=== PATIENT | female | born 1965 | race Caucasian/White ===

== ENCOUNTER 2022-06-05 14:48 | Day surgery (SDC) | payer OTHER ==
[~2022-06-05] VITALS: Ht 167.6 cm; Wt 72.0 kg
[~2022-06-05 14:48] MED LIST: MOTRIN 200200 MG/TAB PO; NORCO 325 MG-51 TAB PO
[2022-06-05] MEDS ORDERED: PRILOSEC10 MG PO (15:37)
[2022-06-05] MEDS ORDERED: TORADOL 10MG TA10 MG PO (15:39)
[2022-06-05] MEDS ORDERED: BACTRIM DS 8001 TAB PO (15:41)
[2022-06-05] MEDS ORDERED: COMPAZINE 110 MG/TAB PO (15:41)
[2022-06-05] MEDS ORDERED: IMODIUM A-D2 MG PO (15:43)
[2022-06-05] MEDS ORDERED: CLARITIN 1010 MG/TAB PO (15:43)
[2022-06-05 16:17] VITALS: BP 131/66; PULSE 104; TEMP 97.6
[2022-06-05] MEDS ORDERED: PYRIDIUM 100MG100 MG PO (16:54)
[2022-06-05 18:31] VITALS: TEMP 98.5
[2022-06-05 19:37] VITALS: BP 101/57; PULSE 83
--- NOTE | 2022-06-05 20:00 | NUR ---
Patient arrived to the floor at 1914, report given by PACU nurse Sri, vitals taken, at bedside, voiding fine, denies further need at this time.
[2022-06-05 20:37] VITALS: BP 116/64; PULSE 79
--- NOTE | 2022-06-05 21:40 | NUR ---
Patient tolerated her turkey sandwich without any nausea, discharge instructions given, questions answered, IV discontinued, left the floor at 2140 with michelle Andrews.
== END 2022-06-05 21:40 | disposition home or self-care (01) ==
LOC: SDCO 14:48 → SURG 16:51 → SDCO 17:15
DX: N21.8 Other lower urinary tract calculus (principal); K21.9 Gastro-esophageal reflux disease without esophagitis; G62.9 Polyneuropathy, unspecified
CPT/HCPCS: OP; C1769; C2617; J0690; J1100; J1170; J1940; J2405; J2704; J3010; J7120